=== PATIENT | female | born 1990 | race Caucasian/White ===

== ENCOUNTER → 2019-12-14 | Outpatient (CLI) | payer OTHER ==
[2019-12-14 18:55] LABS: C DIFFICILE GDH NEGATIVE (NEGATIVE)
== END ==
LOC: OD 15:27
PROVIDERS: ATTEND Nurse Practitioner Primary Care
DX: K58.0 Irritable bowel syndrome with diarrhea (principal); R19.4 Change in bowel habit
CPT/HCPCS: 87045; 87177; 87205; 87324; 87449

== ENCOUNTER 2020-07-03 03:08 | Emergency (ER) | payer OTHER ==
[2020-07-03 07:00] LABS: APPEARANCE,URINE CLEAR; BILIRUBIN,URINE NEGATIVE (NEGATIVE); COLOR,URINE STRAW; GLUCOSE, URINE NEGATIVE (NEGATIVE); KETONES,URINE NEGATIVE (NEGATIVE); LEUKOCYTE ESTERASE,URINE NEGATIVE (NEGATIVE); NITRITE,URINE NEGATIVE (NEGATIVE); PROTEIN,URINE NEGATIVE (NEGATIVE); URINE SPECIFIC GRAVITY 1.002; UROBILINOGEN,URINE NEGATIVE mg/dL (<2.0)
[2020-07-03 09:31] LABS: ABSOLUTE LYMPHOCYTES (AUTO) 1.6 10^3/uL (0.5-4.7); ABSOLUTE MONOCYTES (AUTO) 0.4 10^3/uL (0.1-1.4); ABSOLUTE NEUT (AUTO) 5.9 10^3/uL (1.7-8.2); BASOPHILS % (AUTO) 0.5 % (0-2); EOSINOPHILS % (AUTO) 0.4 % (0-6); HEMOGLOBIN 13.9 g/dL (12.0-15.5); LYMPHOCYTES % (AUTO) 20.5 % (13-45); MEAN CORPUSCULAR HEMOGLOBIN 32.1 pg (27.0-33.4); MEAN CORPUSCULAR HGB CONC 35.6 g/dL (32.0-36.0); MEAN CORPUSCULAR VOLUME 90 fl (80-97); MONOCYTES % (AUTO) 4.9 % (3-13); PLATELET COUNT 206 10^3/uL (150-450); RED BLOOD COUNT 4.33 10^6/uL (3.72-5.28); RED CELL DISTRIBUTION WIDTH 12.6 % (11.5-14.0); SEGMENTED NEUTROPHILS % (AUTO) 73.7 % (42-78); TOTAL CELLS COUNTED % (AUTO) 100 %
[2020-07-03 09:50] LABS: ALBUMIN 4.6 g/dL (3.5-5.0); ALKALINE PHOSPHATASE 61 U/L (38-126); ANION GAP 9 (5-19); ASPARTATE AMINO TRANSFERASE 28 U/L (14-36); BILIRUBIN,DIRECT 0.1 mg/dL (0.0-0.4); BILIRUBIN,TOTAL 0.7 mg/dL (0.2-1.3); BLOOD UREA NITROGEN 9 mg/dL (7-20); CALCIUM 9.9 mg/dL (8.4-10.2); CARBON DIOXIDE 25 mmol/L (22-30); CHLORIDE 106 mmol/L (98-107); GLUCOSE 86 mg/dL (75-110); POTASSIUM 4.4 mmol/L (3.6-5.0); TOTAL PROTEIN 6.9 g/dL (6.3-8.2)
[2020-07-03 10:00] VITALS: BP 102/62
--- NOTE | 2020-07-03 10:48 | ER Document Report ---
ED General - General Chief Complaint: Other Stated Complaint: SHAKING/PALPITATIONS/MUSCLE PAIN Time Seen by Provider: 07/03/20 09:11 Primary Care Provider: JUAN PCIHARDO NP [Primary Care Provider] - Follow up as needed Mode of Arrival: Ambulatory Information source: Patient - [facility] Notes: Patient presents complaining of shaking all over as well as "my brain being on fire". She states that she would also have shivering and chills. She states this started about 1:59 AM in the morning when she woke up from sleeping. 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 She states she felt fine when she went to sleep. She does have a history of some anxiety. She states that her heart is also racing and that she is having palpitations. The symptoms have been mild to moderate. Nothing makes them better or worse. They appear to be intermittent. No radiation of symptoms. - Related Data Allergies/Adverse Reactions: No Known Allergies Allergy (Unverified 07/03/20 04:08) Home Medications: PROZAC. MIRALAX Past Medical History - General Information source: Patient - Social History Smoking Status: Never Smoker Frequency of alcohol use: None Drug Abuse: None Family History: Reviewed & Not Pertinent GI Medical History: Reports: Hx Gastroesophageal Reflux Disease, Hx Ulcer Past Surgical History: Reports: Hx Cardiac Surgery - ablasion Review of Systems - Review of Systems Constitutional: denies: Chills, Fever Cardiovascular: Palpitations, Heart racing. denies: Chest pain Respiratory: denies: Cough, Wheezing -: Yes All other systems reviewed and negative Physical Exam - Vital signs Vitals: Temp Pulse Resp BP Pulse Ox 98.6 F 103 H 20 101/69 97 07/03/20 04:05 07/03/20 04:05 07/03/20 04:05 07/03/20 04:05 07/03/20 04:05 Interpretation: Normal, Other - Patient was apparently tachycardic at triage but not on my exam. - General General appearance: Appears well, Alert - HEENT Head: Normocephalic, Atraumatic Eyes: Normal Pupils: PERRL - Respiratory Respiratory status: No respiratory distress Chest status: Nontender Breath sounds: Normal Chest palpation: Normal - Cardiovascular Rhythm: Regular Heart sounds: Normal auscultation Murmur: No - Abdominal Inspection: Normal Distension: No distension Bowel sounds: Normal Tenderness: Nontender Organomegaly: No organomegaly - Back Back: Normal, Nontender - Extremities General upper extremity: Normal inspection, Nontender, Normal color, Normal ROM, Normal temperature General lower extremity: Normal inspection, Nontender, Normal color, Normal ROM, Normal temperature, Normal weight bearing. No: Lulu's sign - Neurological Neuro grossly intact: Yes Cognition: Normal Orientation: AAOx4 [place] Coma Scale Eye Opening: Spontaneous [place] Coma Scale Verbal: Oriented [place] Coma Scale Motor: Obeys Commands [place] Coma Scale Total: 15 Speech: Normal Motor strength normal: LUE, RUE, LLE, RLE Sensory: Normal - Psychological Associated symptoms: Normal affect, Normal mood - Skin Skin Temperature: Warm Skin Moisture: Dry Skin Color: Normal Course - Re-evaluation Re-evalutation: 07/03/20 10:45 Patient presents with anxiety-like symptoms including palpitations and sensations of "being on fire". Laboratories are unremarkable. Vital signs are stable. Exam is unremarkable. 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 Symptoms seem most consistent with anxiety. - Vital Signs Vital signs: Temp Pulse Resp BP Pulse Ox 98.4 F 79 18 102/62 100 07/03/20 09:58 07/03/20 09:58 07/03/20 09:58 07/03/20 09:58 07/03/20 09:58 - Laboratory Result Diagrams: 07/03/20 08:50 07/03/20 08:50 - EKG Interpretation by Co EKG shows normal: Sinus rhythm Rate: Normal Rhythm: NSR [place]/QRS: No: Right axis deviation, Left axis deviation Discharge - Discharge Clinical Impression: Anxiety, Palpitations Condition: Stable Disposition: HOME, SELF-CARE Instructions: Anxiety ([facility]) Forms: Return to Work Referrals: JUAN PICHARDO NP [Primary Care Provider] - Follow up in 1 week
--- NOTE | 2020-07-03 19:44 | EKG REPORT ---
SEVERITY:- BORDERLINE ECG - SINUS RHYTHM LOW VOLTAGE THROUGHOUT : Confirmed by: Laura Godinez 03-Jul-2020 19:43:51
== END 2020-07-03 11:04 | disposition home or self-care (01) ==
LOC: ER 03:08
DX: F41.9 Anxiety disorder, unspecified (principal); R00.2 Palpitations; R25.1 Tremor, unspecified; M79.10 Myalgia, unspecified site; Z79.899 Other long term (current) drug therapy
CPT/HCPCS: 36415; 80053; 81001; 81025; 83690; 84702; 85025; 93005; 93010; 99284